=== PATIENT | female | born 1955 | race African-American/Black ===

== ENCOUNTER 2018-04-05 22:29 | Emergency (ER) | END 2018-04-06 04:34 | disposition short-term general hospital (02) ==

== ENCOUNTER 2018-06-05 23:16 | Emergency (ER) | END 2018-06-06 04:10 | disposition short-term general hospital (02) ==

== ENCOUNTER 2018-06-11 20:03 | Emergency (ER) | END 2018-06-12 02:00 | disposition short-term general hospital (02) ==